=== PATIENT | female | born 1955 | race African-American/Black ===

== ENCOUNTER 2018-08-07 22:39 | Emergency (ER) | payer BC, OTHER ==
[~2018-08-07] VITALS: Ht 160 cm; Wt 81.7 kg
[2018-08-08] MEDS ORDERED: CLONIDINE0.1 PO (01:08)
[2018-08-08] MEDS ORDERED: COZAAR 25 MG TA25 M1 PO (01:09)
[2018-08-08] MEDS ORDERED: MOBIC15 MG PO (01:09)
[2018-08-08 02:30] VITALS: BP 175/79
== END 2018-08-08 02:43 | disposition home or self-care (01) ==
LOC: ER 22:39
DX: R04.0 Epistaxis (principal); I10 Essential (primary) hypertension; F17.210 Nicotine dependence, cigarettes, uncomplicated; Z90.89 Acquired absence of other organs